=== PATIENT | male | born 2005 | race Caucasian/White ===

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

== ENCOUNTER 2025-04-15 12:49 | Emergency (ER) | payer OTHER, SELFPAY ==
[2025-04-15 12:53] VITALS: BP 124/74; PULSE 68; TEMP 36.5; O2SAT 100; BMI 20.9
--- NOTE | 2025-04-15 13:13 | US_ITS ---
The [address] [address] Patient Name: DANIE COLVIN MRN: [id number] date: 2005 Sex: M Assigned Patient Location: ER Current Patient Location: ER Accession/Order Number: [id number] Exam Date: 04/15/2025 13:35 Report Date: 04/15/2025 14:28 At the request of: TRISTAN ANTHONY DO Procedure: US scrotum EXAMINATION TYPE: US scrotum grayscale, color Doppler, waveform duplex analysis was performed. DATE OF EXAM ORDERED: 04/15/2025 2:06 PM HISTORY: L testicular pain x 24 hours, possible epidymitis COMPARISON: NONE TECHNIQUE: Realtime imaging of the scrotum was performed. Thomason scale, color Doppler and spectral Doppler imaging of the testicles was performed. FINDINGS: Testicles: Both testicles demonstrate homogeneous echotexture without intratesticular filling defect. Right measurements: 4.2 x 2 x 1 x 2.8 cm Left measurements: 4.4 x 2.3 x 2.8 cm Epididymis: Left epididymis is heterogeneous. The right epididymis is within . There is increased vascularity along the left epididymal head on color Doppler images. Right measurements: 0.5 cm Left measurements: 0.9 cm Hydrocele: None. Doppler ultrasound of the testicles: Arterial and venous waveforms are seen within both testicles. No sonographic evidence of testicular ischemia. US/US scrotum IMPRESSION: 1. The testicles are normal in size and echogenicity. No intratesticular lesions. 2. No sonographic evidence of testicular ischemia. 3. Findings are consistent with epididymitis on the left. Impression dictated by: Chandana Wyatt M.D. 04/15/2025 2:28 PM Dictation Location: [place] [address] Electronically authenticated by: [id number] Y Date: 04/15/2025 14:28
[2025-04-15 13:40] LABS: Glucose Urine UA NEGATIVE (NEGATIVE)
[2025-04-15 14:06] LABS: Cast Seen? NONE SEEN #/LPF (NONE SEEN); Crystals Seen? None Seen #/HPF (None Seen); Urine Culture Indicated NO
[2025-04-15] MEDS: CEFTRIAXONE 500 MG VIAL IM (14:49)
[2025-04-15] MEDS: LIDOCAINE HCL 1% PF 20 MG/2 ML VIAL INJ (14:50)
--- NOTE | 2025-04-15 14:54 | ED.GENADUL1 ---
HPI HPI - General Adult General Chief complaint: Urogenital-Male Stated complaint: UROGENTIAL PAIN L TESTICLE Time Seen by Provider: 04/15/25 12:50 Source: patient Mode of arrival: walk-in History of Present Illness HPI narrative: Patient is a 20-year-old male presenting to the emergency department for concerns of left testicular pain. Patient states his pain started approximate 24 hours ago. He states that sitting and lying down makes the pain completely go away. However, when he stands up and walks around, the pain gets worse. He has never had pain like this in the past. He is sexually active with 1 partner for the last year. He does not use very contraception. Denies history of STDs. Denies dysuria or urethral discharge. No nausea or vomiting. No fevers or chills. Denies history of trauma to the area. Related Data Previous Rx's ?Medication ?Instructions ?Recorded doxycycline hyclate 100 mg capsule 100 mg PO BID 10 days #20 caps 04/15/25 Allergies Allergy/AdvReac Type Severity Reaction Status Date / Time No Known Drug Allergies Allergy Verified 04/15/25 12:53 Opioid HPI Opioid Management Most Recent Opioid Data: Last Pain Scale 5 Today, 13:00 Review of Systems ROS Status of ROS 10 or more systems reviewed and unremarkable except as noted in history and below PFSH PFSH Social History Little interest or pleasure in doing things: not at all Feeling down, depressed, or hopeless: not at all Exam Narrative Exam Narrative: CONSTITUTIONAL: Well-appearing, answering questions and following commands appropriately SKIN: Was warm and dry. EYES: Sclerae white. EARS, NOSE, THROAT: Moist oral mucosa. RESPIRATORY: Nonlabored respirations. CARDIOVASCULAR: Normal rate and regular rhythm. GASTROINTESTINAL: Abdomen is soft, nontender, nondistended. GENITOURINARY: Normal external male genitalia without lesions or vesicles/ulcerations. There is no urethral discharge. There is no significant tenderness throughout the testicles. No palpable masses. Testicles are normal lie. Normal cremasteric reflex. MUSCULOSKELETAL: No peripheral edema. NEUROLOGIC: Patient is awake and alert. Constitutional Vital Signs, click to edit/add: Last Vital Signs Temp 97.7 F 04/15/25 12:53 Pulse 68 04/15/25 12:53 Resp 16 04/15/25 12:53 BP 124/74 04/15/25 12:53 Pulse Ox 100 09/04/25 12:53 O2 Del Method Room Air 04/15/25 12:53 Course Vital Signs Vital signs: Vital Signs Temperature 97.7 F 04/15/25 12:53 Pulse Rate 68 04/15/25 12:53 Respiratory Rate 16 04/15/25 12:53 Blood Pressure 124/74 04/15/25 12:53 Pulse Oximetry 100 04/15/25 12:53 Oxygen Delivery Method Room Air 04/15/25 12:53 Temperature 97.7 F 04/15/25 12:53 Pulse Rate 68 04/15/25 12:53 Respiratory Rate 16 04/15/25 12:53 Blood Pressure 124/74 04/15/25 12:53 Pulse Oximetry 100 04/15/25 12:53 Oxygen Delivery Method Room Air 04/15/25 12:53 Medical Decision Making MDM Narrative Medical decision making narrative: Patient is a healthy 20-year-old sexually active male presenting to the emergency department the 24-hour history of intermittent left-sided testicular pain. Vital signs arrival are within normal limits. He is afebrile and hemodynamically stable. Examination as noted above. Clinically, it does sound like the patient has left-sided epididymitis. Low concern for testicular torsion as the pain is intermittent over the last 24 hours, and he generally appears well with an intact cremasteric reflex/normal genitourinary examination. Ultrasound of the testicle was obtained. UA and urine G/C/T cultures were sent. Urinalysis was unremarkable. Testicular ultrasound independent reviewed and interpreted by myself and radiology demonstrated evidence of left-sided epididymitis, no evidence of torsion. I do believe the patient stable for discharge. He was given a one-time dose of ceftriaxone 500 mg IM for suspected STI related epididymitis. He was given a prescription for doxycycline 100mg twice daily x 10 days. Return precautions were given including any new or concerning symptoms. He is instructed to follow-up with his PCP should his symptoms persist in the next week or two. Patient understands and agrees to the plan. FINAL IMPRESSION: #Acute left-sided epididymitis DISPOSITION: Discharged home CONDITION: Good Lab Data Lab results reviewed: Yes I reviewed the patient's lab results Labs: Lab Results 04/15/25 Range/Units 13:25 Urine Color Yellow (YELLOW) Urine Clarity Clear (CLEAR) Urine pH 5.5 (5.0-9.0) Ur Specific [place] >=1.030 A (1.005-1.025) Urine Protein Negative (NEG/TRACE) mg/dL Urine Glucose (UA) Negative (NEGATIVE) mg/dL Urine Ketones Negative (NEGATIVE) mg/dL Urine Occult Blood Negative (NEGATIVE) Urine Nitrite Negative (NEGATIVE) Urine Bilirubin Negative (NEGATIVE) Urine Urobilinogen 0.2 (0.2-1.0) EU/dL Ur Leukocyte Esterase Negative (NEGATIVE) Urine RBC 0-2 (0-2) #/HPF Urine WBC None seen (NONE SEEN) #/HPF Ur Squamous Epith Cells None seen (NONE/RARE) #/LPF Urine Crystals None seen (None Seen) #/HPF Urine Bacteria Trace A (NONE SEEN) #/HPF Urine Casts None seen (NONE SEEN) #/LPF Urine Mucus Small A (NONE SEEN) Ur Culture Indicated? No Imaging Data testicular ultrasound: Attestation: I personally reviewed and interpreted this imaging study as follows: Radiologist's impression: ITS Impressions Scrotum Ultrasound 04/15/25 13:13 IMPRESSION: 1. The testicles are normal in size and echogenicity. No intratesticular lesions. 2. No sonographic evidence of testicular ischemia. 3. Findings are consistent with epididymitis on the left. Impression dictated by: Chandana Wyatt M.D. 04/15/2025 2:28 PM Dictation Location: [place] [address] Electronically authenticated by: [id number] Y Date: 04/15/2025 14:28 Discharge Plan Discharge Chief Complaint: Urogenital-Male Clinical Impression: Epididymitis Patient Disposition: Home, Self-Care Time of Disposition Decision: 14:36 Condition: Good Mode of Transportation: Private Vehicle Prescriptions / Home Meds: New doxycycline hyclate 100 mg capsule 100 mg PO BID 10 Days Qty: 20 0RF Print Language: Cam[place]onian Instructions: Epididymitis (ED) Referrals: Paige Trejo MD [Primary Care Provider, Family Practice] - 1 week
[2025-04-16 21:07] LABS: Neisseria gonorrhoeae, NAA Negative (Negative)
== END 2025-04-15 14:59 | disposition home or self-care (01) ==
PROVIDERS: Emergency Provider Student in an Organized Health Care Education/Training Program; PCP Family Medicine
DX: N45.1 Epididymitis (principal)
CPT/HCPCS: 76870; 81001; 87491; 87591; 96372; 99285; J0696